=== PATIENT | female | born 1995 | race Caucasian/White ===

== ENCOUNTER 2016-10-07 02:32 | Emergency (ER) | payer BC ==
[~2016-10-07] VITALS: Ht 180.3 cm; Wt 104.5 kg
[2016-10-07 02:36] VITALS: TEMP 98
[2016-10-07 03:25] VITALS: BP 132/73; PULSE 105
== END 2016-10-07 03:25 | disposition home or self-care (01) ==
LOC: COL.ER 02:32
DX: S91.112A Laceration without foreign body of left great toe without damage to nail, initial encounter (principal); W25.XXXA Contact with sharp glass, initial encounter; Y92.59 Other trade areas as the place of occurrence of the external cause; Y99.0 Civilian activity done for income or pay